=== PATIENT | female | born 1965 | race Asian ===

== ENCOUNTER → 2020-07-22 | Outpatient (CLI) | payer OTHER | LOC: CAT 10:28 | PROVIDERS: ATTEND Family Medicine | DX: Z13.6 Encounter for screening for cardiovascular disorders (principal); I25.10 Atherosclerotic heart disease of native coronary artery without angina pectoris; E78.00 Pure hypercholesterolemia, unspecified ==

== ENCOUNTER → 2020-07-27 | Outpatient (CLI) | payer BC | LOC: BC 08:52 | PROVIDERS: ATTEND Family Medicine | DX: Z12.31 Encounter for screening mammogram for malignant neoplasm of breast (principal) ==